=== PATIENT | male | born 1955 | race African-American/Black ===

== ENCOUNTER 2016-05-03 22:26 | Inpatient (IN) | payer MEDICARE ==
[~2016-05-03] VITALS: Ht 182.9 cm; Wt 95.1 kg
[~2016-05-03 22:26] MED LIST: ALBU2.5V NPPB; ALBU2.5V11 NEB; ALBU8.5H5 INH; ALPR-475 PO; ALPR0.254 PO; ALPR0.5T10 PO; ALPR0.5T6 PO; AMOX1TAB64 PO; ASPI-515 PO; ASPI-621 PO; ASPI-650 PO; ATOR10TA9 PO; AZIT-14 PO; BUDE10.22 INH; BUSP15TA PO; CARV3.1212 PO; CARV3.122 PO; CARV6.2512 PO; CEFD300C2 PO; CEFT600V IV; CEFU500T PO; CIPR500T87 PO; CLOP75TA PO; DIPH25CA61 PO; DOCU-30 PO; DOXY100T PO; ENAL5TAB34 PO; ENOX40SY4 SQ; FERR325T20 PO; FLUT1BLS INH; FLUT1DIS3 INH; FURO-93 PO; FURO20TA3 PO; FURO40TA6 PO; GLIP5TAB10 PO; GLYB2.5T2 PO; HYDR-3240 PO; HYDR-3307 PO; INSU100I18 SQ-INSULIN; INSU100I28 SQ-INSULIN; INSU100V5 SQ-INSULIN; INSULIN SC; IPRA3AMP NPPB; ISOS30TA8 PO; LEVO500T33 PO; LEVO750T6 PO; LISI-170 PO; LISI2.5T PO; LISI5TAB7 PO; MORP4VIA IV; NICO1PAT4 TD; NICO1PAT5 TD; ONDA4VIA4 IVP; OXYC10TA6 PO; OXYC1TAB7 PO; POLY17PO5 PO; POTA10TA5 PO; POTA20TA14 PO; PRED10TA PO; PRED10TA14 PO; PRED20TA PO; PRED5TAB PO; PREG200C PO; PREG50CA PO; SIMV10TA3 PO; TRAM50TA2 PO; TRAZ50TA18 PO; UNKNOWN INSULIN SQ; ZOLP-413 PO
[2016-05-03] MEDS ORDERED: SODIUM CHLORIDE 0.9% 1,000ML IVBOLUS ONE (23:00)
[2016-05-03] MEDS ORDERED: SODIUM CHLORIDE FLUSH 10ML SYR IVF ONE (23:00)
[2016-05-03 23:10] LABS: BLOOD UREA NITROGEN 35 mg/dL (7-18)
[2016-05-03 23:11] LABS: ASPARTATE AMINO TRANSFERASE 96 U/L (15-37)
[2016-05-03 23:21] LABS: HEMOGLOBIN 15.2 g/dL (13.7-18.0)
[2016-05-03 23:23] LABS: IS PT STATUS REG ER OR PRE ER? YES
[2016-05-04] MEDS ORDERED: BISACODYL 10 MG SUPP PR PRN (00:30)
[2016-05-04] MEDS ORDERED: ONDANSETRON 2MG/ML, 2ML IVP PRN (00:30)
[2016-05-04] MEDS ORDERED: POLYETHYLENE GLYCOL 17 GM PACKET PO PRN (00:30)
[2016-05-04] MEDS ORDERED: MORPHINE SULFATE 4 MG/ML, 1ML IVPush PRN (00:30)
[2016-05-04] MEDS ORDERED: FUROSEMIDE 40 MG/4 ML IV SCH ×2 (00:30→07:30)
[2016-05-04] MEDS ORDERED: ACETAMINOPHEN 325 MG TABLET PO PRN (00:30)
[2016-05-04] MEDS ORDERED: ALBUTEROL SULFATE 2.5 MG/3 ML ONE (01:32)
[2016-05-04] MEDS ORDERED: ALBUTEROL/IPRATROPIUM 2.5MG/0.5MG, 3 ML NPPB PRN (02:00)
[2016-05-04 03:00] VITALS: BP 104/72
[2016-05-04] MEDS: BUSPIRONE 5 MG TABLET PO SCH ×4 (04:20→20:48)
[2016-05-04] MEDS: NICOTINE 21 MG/24 HR PATCH.TD24 TD SCH (04:20)
[2016-05-04] MEDS: HEPARIN 5,000 UNITS/ML, 1ML SQ SCH ×3 (04:20→17:22)
[2016-05-04] MEDS: PREGABALIN 200 MG CAPSULE PO SCH ×4 (04:59→20:48)
[2016-05-04] MEDS ORDERED: HYDR-3152 PO (05:05)
[2016-05-04 07:25] VITALS: BP 91/58
[2016-05-04 07:26] LABS: ASPARTATE AMINO TRANSFERASE 89 U/L (15-37); BLOOD UREA NITROGEN 44 mg/dL (7-18)
[2016-05-04 07:31] LABS: IS PT STATUS REG ER OR PRE ER? NO
[2016-05-04] MEDS: ISOSORBIDE MONONITRATE ER 30 MG TABLET PO SCH (08:57)
[2016-05-04] MEDS: FUROSEMIDE 20 MG/2 ML IV SCH ×2 (08:58→17:22)
[2016-05-04] MEDS: SENNA/DOCUSATE TABLET PO SCH (08:58)
[2016-05-04] MEDS: CLOPIDOGREL 75 MG TABLET PO SCH (08:58)
[2016-05-04] MEDS: POTASSIUM CHLORIDE 20 MEQ TAB.ER.PRT PO SCH ×2 (08:58→17:22)
[2016-05-04] MEDS: FERROUS SULFATE 325 MG TABLET PO SCH (08:59)
[2016-05-04] MEDS: SODIUM CHLORIDE FLUSH 10ML SYR IVF SCH ×2 (08:59→20:49)
[2016-05-04] MEDS ORDERED: LISINOPRIL 5 MG TABLET PO SCH (09:00)
[2016-05-04] MEDS ORDERED: CARVEDILOL 3.125 MG TABLET PO SCH (09:00)
[2016-05-04] MEDS: FLUTICASONE/VILANTEROL 200-25MCG/INH INH SCH (10:01)
[2016-05-04 11:31] LABS: IS PT STATUS REG ER OR PRE ER? NO
[2016-05-04 11:50] VITALS: BP 98/67
[2016-05-04 13:38] VITALS: BP 102/71
[2016-05-04] MEDS: HYDROcodone/APAP 5/325 TABLET PO PRN ×2 (14:50→20:57)
[2016-05-04 17:27] VITALS: BP 101/68
[2016-05-04 18:48] VITALS: BP 104/76
[2016-05-05] MEDS: HEPARIN 5,000 UNITS/ML, 1ML SQ SCH ×2 (00:30→10:00)
[2016-05-05 02:44] VITALS: BP 115/83
[2016-05-05] MEDS: NICOTINE 21 MG/24 HR PATCH.TD24 TD SCH (04:16)
[2016-05-05 06:15] LABS: BLOOD UREA NITROGEN 35 mg/dL (7-18)
[2016-05-05 06:38] VITALS: BP 109/76
[2016-05-05] MEDS: SODIUM CHLORIDE FLUSH 10ML SYR IVF SCH (09:00)
[2016-05-05] MEDS: SENNA/DOCUSATE TABLET PO SCH (09:00)
[2016-05-05] MEDS: ISOSORBIDE MONONITRATE ER 30 MG TABLET PO SCH (10:08)
[2016-05-05] MEDS: PREGABALIN 200 MG CAPSULE PO SCH (10:08)
[2016-05-05] MEDS: POTASSIUM CHLORIDE 20 MEQ TAB.ER.PRT PO SCH (10:08)
[2016-05-05] MEDS: HYDROcodone/APAP 5/325 TABLET PO PRN (10:09)
[2016-05-05] MEDS: BUSPIRONE 5 MG TABLET PO SCH (10:09)
[2016-05-05] MEDS: FLUTICASONE/VILANTEROL 200-25MCG/INH INH SCH (10:09)
[2016-05-05] MEDS: CLOPIDOGREL 75 MG TABLET PO SCH (10:09)
[2016-05-05] MEDS: FUROSEMIDE 20 MG/2 ML IV SCH (10:10)
[2016-05-05] MEDS: FERROUS SULFATE 325 MG TABLET PO SCH (10:14)
[2016-05-05] MEDS ORDERED: NICO1PAT5 TD (10:51)
[2016-05-05] MEDS ORDERED: FURO-93 PO (10:51)
[2016-05-05 13:41] VITALS: BP 113/80
== END 2016-05-05 16:32 | disposition home or self-care (01) | DRG 291 ==
LOC: ED 23:52 → EDIP 23:54 → ED 23:59 → 5SO 05-04 03:16
DX: I13.0 Hypertensive heart and chronic kidney disease with heart failure and stage 1 through stage 4 chronic kidney disease, or unspecified chronic kidney disease (principal); I50.23 Acute on chronic systolic (congestive) heart failure; E44.0 Moderate protein-calorie malnutrition; J96.10 Chronic respiratory failure, unspecified whether with hypoxia or hypercapnia; I42.9 Cardiomyopathy, unspecified; E11.649 Type 2 diabetes mellitus with hypoglycemia without coma; E11.22 Type 2 diabetes mellitus with diabetic chronic kidney disease; G89.29 Other chronic pain; B18.2 Chronic viral hepatitis C; F17.200 Nicotine dependence, unspecified, uncomplicated; H54.42 Blindness, left eye, normal vision right eye; I25.10 Atherosclerotic heart disease of native coronary artery without angina pectoris; R74.8 Abnormal levels of other serum enzymes; I49.3 Ventricular premature depolarization; J44.9 Chronic obstructive pulmonary disease, unspecified; N18.2 Chronic kidney disease, stage 2 (mild); I25.2 Old myocardial infarction; Z79.4 Long term (current) use of insulin; Z82.5 Family history of asthma and other chronic lower respiratory diseases; Z83.3 Family history of diabetes mellitus; Z91.14 Patient's other noncompliance with medication regimen; Z91.19 Patient's noncompliance with other medical treatment and regimen; Z99.81 Dependence on supplemental oxygen; Z68.24 Body mass index [BMI] 24.0-24.9, adult; F15.10 Other stimulant abuse, uncomplicated; I95.9 Hypotension, unspecified
CPT/HCPCS: 36415; 71010; 80048; 80053; 80061; 82533; 82728; 82962; 83036; 83540; 83550; 83735; 83880; 84439; 84443; 84484; 85025; 85610; 93005; 93306; 94640; 96360; 96361; J1644; J7620; J1940; J7030

== ENCOUNTER 2016-05-19 23:49 | Inpatient (IN) | payer MEDICARE ==
[~2016-05-19] VITALS: Ht 182.9 cm; Wt 98.1 kg
[~2016-05-19 23:49] MED LIST changes: +HYDR-3152 PO
[2016-05-20] MEDS ORDERED: ASPIRIN 81 MG TABLET CHEW PO ONE
[2016-05-20] MEDS ORDERED: ALBUTEROL SULFATE 2.5 MG/3 ML NPPB ONE
[2016-05-20] MEDS ORDERED: ASPIRIN 81 MG TABLET CHEW ONE (00:47)
[2016-05-20 00:52] LABS: BLOOD UREA NITROGEN 17 mg/dL (7-18)
[2016-05-20 00:57] LABS: IS PT STATUS REG ER OR PRE ER? YES
[2016-05-20 01:15] LABS: HEMOGLOBIN 15.1 g/dL (13.7-18.0)
[2016-05-20] MEDS ORDERED: MORPHINE SULFATE 4 MG/ML, 1ML IVPush PRN (02:00)
[2016-05-20] MEDS ORDERED: ONDANSETRON 2MG/ML, 2ML IVPush PRN (02:00)
[2016-05-20] MEDS ORDERED: SODIUM CHLORIDE 0.9% 1,000 ML IV SCH (03:11)
[2016-05-20] MEDS ORDERED: BISACODYL 10 MG SUPP PR PRN (03:30)
[2016-05-20] MEDS ORDERED: ACETAMINOPHEN 325 MG TABLET PO PRN (03:30)
[2016-05-20] MEDS ORDERED: TRAZODONE 50MG TABLET PO PRN (03:30)
[2016-05-20] MEDS: FUROSEMIDE 40 MG TABLET PO SCH ×2 (03:30→09:07)
[2016-05-20] MEDS ORDERED: DOCUSATE 100 MG CAPSULE PO PRN (03:30)
[2016-05-20] MEDS: ENOXAPARIN 40 MG/0.4 ML SQ SCH (03:30)
[2016-05-20] MEDS ORDERED: POLYETHYLENE GLYCOL 17 GM PACKET PO PRN (03:30)
[2016-05-20] MEDS ORDERED: LABETALOL 5MG/ML, 20ML IV PRN (03:30)
[2016-05-20] MEDS ORDERED: ONDANSETRON ODT 4 MG PO PRN (03:30)
[2016-05-20 04:20] VITALS: BP 133/86
[2016-05-20] MEDS: PREGABALIN 200 MG CAPSULE PO SCH ×4 (04:48→22:02)
[2016-05-20] MEDS: HYDROcodone/APAP 10/325 MG TABLET PO PRN ×3 (04:48→22:03)
[2016-05-20] MEDS: ALBUTEROL/IPRATROPIUM 2.5MG/0.5MG, 3 ML NPPB SCH ×3 (06:00→22:00)
[2016-05-20] MEDS: NICOTINE 14MG/24 HR PATCH.TD24 TD SCH (06:49)
[2016-05-20 06:57] VITALS: BP 122/79
[2016-05-20 07:06] LABS: IS PT STATUS REG ER OR PRE ER? NO
[2016-05-20] MEDS ORDERED: FUROSEMIDE 40 MG TABLET PO SCH (09:00)
[2016-05-20] MEDS: ISOSORBIDE MONONITRATE ER 30 MG TABLET PO SCH (09:07)
[2016-05-20] MEDS: LISINOPRIL 5 MG TABLET PO SCH (09:07)
[2016-05-20] MEDS: CARVEDILOL 3.125 MG TABLET PO SCH ×2 (09:07→22:02)
[2016-05-20] MEDS: BUSPIRONE 5 MG TABLET PO SCH ×3 (09:07→22:08)
[2016-05-20] MEDS: CLOPIDOGREL 75 MG TABLET PO SCH (09:07)
[2016-05-20] MEDS: SPIRONOLACTONE 50 MG TABLET PO SCH (09:08)
[2016-05-20] MEDS: FERROUS SULFATE 325 MG TABLET PO SCH (09:08)
[2016-05-20] MEDS: INSULIN ASPART 100 UNITS/ML, PEN SQ-INSULIN SCH ×5 (10:12→22:04)
[2016-05-20] MEDS: FLUTICASONE/VILANTEROL 100-25MCG/INH INH SCH (10:12)
[2016-05-20 12:30] LABS: IS PT STATUS REG ER OR PRE ER? NO
[2016-05-20 13:51] VITALS: BP 106/70
[2016-05-20 18:29] VITALS: BP 109/74
[2016-05-21 01:47] VITALS: BP 128/78
[2016-05-21] MEDS: ENOXAPARIN 40 MG/0.4 ML SQ SCH (03:30)
[2016-05-21 05:31] LABS: HEMOGLOBIN 14.9 g/dL (13.7-18.0)
[2016-05-21 05:38] LABS: BLOOD UREA NITROGEN 30 mg/dL (7-18)
[2016-05-21] MEDS: NICOTINE 14MG/24 HR PATCH.TD24 TD SCH (06:02)
[2016-05-21 06:52] VITALS: BP 145/90
[2016-05-21] MEDS: ALBUTEROL/IPRATROPIUM 2.5MG/0.5MG, 3 ML NPPB SCH ×4 (07:00→19:10)
[2016-05-21] MEDS: INSULIN ASPART 100 UNITS/ML, PEN SQ-INSULIN SCH ×4 (07:00→21:41)
[2016-05-21 07:57] LABS: ANISOCYTOSIS 1+; HYPOCHROMIA 1+; MICROCYTOSIS 1+
[2016-05-21] MEDS: LISINOPRIL 5 MG TABLET PO SCH (08:27)
[2016-05-21] MEDS: FLUTICASONE/VILANTEROL 100-25MCG/INH INH SCH (08:27)
[2016-05-21] MEDS: CLOPIDOGREL 75 MG TABLET PO SCH (08:27)
[2016-05-21] MEDS: PREGABALIN 200 MG CAPSULE PO SCH ×3 (08:28→21:37)
[2016-05-21] MEDS: FUROSEMIDE 40 MG TABLET PO SCH (08:28)
[2016-05-21] MEDS: BUSPIRONE 5 MG TABLET PO SCH ×3 (08:28→21:38)
[2016-05-21] MEDS: CARVEDILOL 3.125 MG TABLET PO SCH ×2 (08:28→21:34)
[2016-05-21] MEDS: ISOSORBIDE MONONITRATE ER 30 MG TABLET PO SCH (08:28)
[2016-05-21] MEDS: SPIRONOLACTONE 50 MG TABLET PO SCH (08:29)
[2016-05-21] MEDS: FERROUS SULFATE 325 MG TABLET PO SCH (08:29)
[2016-05-21] MEDS: HYDROcodone/APAP 10/325 MG TABLET PO PRN ×2 (08:34→18:17)
[2016-05-21] MEDS: GUAIFENESIN 200 MG TABLET PO SCH ×3 (11:00→21:00)
[2016-05-21 12:35] VITALS: BP 107/73
[2016-05-21 18:23] VITALS: BP 121/83
[2016-05-22 01:11] VITALS: BP 139/88
[2016-05-22] MEDS: ENOXAPARIN 40 MG/0.4 ML SQ SCH (03:10)
[2016-05-22] MEDS: HYDROcodone/APAP 10/325 MG TABLET PO PRN ×2 (03:12→09:17)
[2016-05-22 05:17] LABS: HEMOGLOBIN 14.7 g/dL (13.7-18.0)
[2016-05-22 05:20] LABS: BLOOD UREA NITROGEN 34 mg/dL (7-18)
[2016-05-22] MEDS: GUAIFENESIN 200 MG TABLET PO SCH ×2 (05:30→11:00)
[2016-05-22] MEDS: NICOTINE 14MG/24 HR PATCH.TD24 TD SCH (05:30)
[2016-05-22] MEDS: INSULIN ASPART 100 UNITS/ML, PEN SQ-INSULIN SCH ×2 (07:00→12:17)
[2016-05-22 07:20] VITALS: BP 141/93
[2016-05-22] MEDS: ALBUTEROL/IPRATROPIUM 2.5MG/0.5MG, 3 ML NPPB SCH ×3 (07:55→14:50)
[2016-05-22] MEDS ORDERED: SPIR50TA PO (08:16)
[2016-05-22] MEDS ORDERED: AZIT500T4 PO (08:16)
[2016-05-22] MEDS ORDERED: PRED10TA PO (08:16)
[2016-05-22] MEDS ORDERED: FURO40TA6 PO (08:16)
[2016-05-22] MEDS ORDERED: GUAI200T3 PO (08:18)
[2016-05-22] MEDS: FLUTICASONE/VILANTEROL 100-25MCG/INH INH SCH (09:00)
[2016-05-22] MEDS: FERROUS SULFATE 325 MG TABLET PO SCH (09:00)
[2016-05-22] MEDS: SPIRONOLACTONE 50 MG TABLET PO SCH (09:00)
[2016-05-22] MEDS: BUSPIRONE 5 MG TABLET PO SCH (09:01)
[2016-05-22] MEDS: CARVEDILOL 3.125 MG TABLET PO SCH (09:01)
[2016-05-22] MEDS: CLOPIDOGREL 75 MG TABLET PO SCH (09:02)
[2016-05-22] MEDS: ISOSORBIDE MONONITRATE ER 30 MG TABLET PO SCH (09:02)
[2016-05-22] MEDS: LISINOPRIL 5 MG TABLET PO SCH (09:02)
[2016-05-22] MEDS: FUROSEMIDE 40 MG TABLET PO SCH (09:02)
[2016-05-22] MEDS: PREGABALIN 200 MG CAPSULE PO SCH (09:02)
[2016-05-22 13:58] VITALS: BP 119/73
== END 2016-05-22 16:10 | disposition home or self-care (01) | DRG 191 ==
LOC: ED 05-20 00:47 → INTOOBSV 05-20 01:34 → EDIP 05-20 01:34 → 4WST 05-20 04:14 → OBSVTOIN 05-21 10:17
PROVIDERS: ADMIT Internal Medicine; ATTEND Internal Medicine
DX: J44.1 Chronic obstructive pulmonary disease with (acute) exacerbation (principal); E87.1 Hypo-osmolality and hyponatremia; I13.0 Hypertensive heart and chronic kidney disease with heart failure and stage 1 through stage 4 chronic kidney disease, or unspecified chronic kidney disease; I42.9 Cardiomyopathy, unspecified; I50.42 Chronic combined systolic (congestive) and diastolic (congestive) heart failure; B19.20 Unspecified viral hepatitis C without hepatic coma; E11.22 Type 2 diabetes mellitus with diabetic chronic kidney disease; G89.29 Other chronic pain; F12.10 Cannabis abuse, uncomplicated; F17.200 Nicotine dependence, unspecified, uncomplicated; M94.0 Chondrocostal junction syndrome [Tietze]; N18.2 Chronic kidney disease, stage 2 (mild); Z79.4 Long term (current) use of insulin; Z83.3 Family history of diabetes mellitus; Z99.81 Dependence on supplemental oxygen; Z82.49 Family history of ischemic heart disease and other diseases of the circulatory system; F15.10 Other stimulant abuse, uncomplicated
CPT/HCPCS: 36415; 71010; 80048; 82040; 82962; 83880; 84484; 85025; 93005; 94640; 99285; G0378; J1815; J7613; J7620; J7030; J7512

== ENCOUNTER 2016-07-17 08:10 | Inpatient (IN) | payer MEDICARE ==
[~2016-07-17] VITALS: Ht 182.9 cm; Wt 105.9 kg
[~2016-07-17 08:10] MED LIST changes: -AZIT-14 PO; +AZIT250T89 PO; +AZIT500T77 PO; -CEFD300C2 PO; +CEFD300C37 PO; +GUAI200T3 PO; +SPIR50TA PO
[2016-07-17] MEDS ORDERED: MORPHINE SULFATE 4 MG/ML, 1ML ONE (09:12)
[2016-07-17] MEDS ORDERED: MORPHINE SULFATE 4 MG/ML, 1ML IVPush PRN (09:30)
[2016-07-17] MEDS ORDERED: SODIUM CHLORIDE FLUSH 10ML SYR IVF ONE (09:30)
[2016-07-17 09:42] LABS: BLOOD UREA NITROGEN 18 mg/dL (7-18)
[2016-07-17 09:47] LABS: ASPARTATE AMINO TRANSFERASE 37 U/L (15-37)
[2016-07-17 09:48] LABS: IS PT STATUS REG ER OR PRE ER? YES
[2016-07-17] MEDS ORDERED: SODIUM CHLORIDE FLUSH 10ML SYR IVF PRN (11:00)
[2016-07-17] MEDS ORDERED: LABETALOL 5MG/ML, 20ML IVPush PRN (11:30)
[2016-07-17] MEDS ORDERED: ONDANSETRON ODT 4 MG PO PRN (11:30)
[2016-07-17] MEDS ORDERED: morphine SULFATE 10 MG/ML, 1ML IVPush PRN (11:30)
[2016-07-17] MEDS ORDERED: ONDANSETRON 2MG/ML, 2ML IVPush PRN (11:30)
[2016-07-17 11:58] VITALS: BP 124/86
[2016-07-17 12:09] LABS: IS PT STATUS REG ER OR PRE ER? YES
[2016-07-17] MEDS: ENOXAPARIN 40 MG/0.4 ML SQ SCH (12:30)
[2016-07-17 12:58] LABS: DAU SCREEN DISCLAIMER
[2016-07-17] MEDS: methylPREDNISolone SOD SUCC 125 MG/2 ML IVPush SCH ×2 (13:18→21:39)
[2016-07-17] MEDS: HYDROcodone/APAP 5/325 TABLET PO PRN ×3 (13:18→21:50)
[2016-07-17] MEDS: LISINOPRIL 5 MG TABLET PO SCH (13:18)
[2016-07-17] MEDS ORDERED: ISOSORBIDE MONONITRATE ER 30 MG TABLET PO ONE (13:30)
[2016-07-17] MEDS ORDERED: INSU100V13 SC (13:56)
[2016-07-17] MEDS ORDERED: INSU100C5 SQ-INSULIN (13:57)
[2016-07-17] MEDS: ALBUTEROL/IPRATROPIUM 2.5MG/0.5MG, 3 ML NPPB SCH ×2 (14:03→19:20)
[2016-07-17] MEDS ORDERED: FERR160T4 PO (14:26)
[2016-07-17] MEDS ORDERED: DEXTROSE 4 GM TAB.CHEW PO PRN (14:30)
[2016-07-17] MEDS ORDERED: DEXTROSE 50%, 50ML SYRINGE IVPush PRN (14:30)
[2016-07-17] MEDS ORDERED: GLUCAGON 1 MG IM PRN (14:30)
[2016-07-17 15:03] VITALS: BP 146/92
[2016-07-17] MEDS ORDERED: FUROSEMIDE 40 MG/4 ML IV SCH (17:00)
[2016-07-17 17:23] LABS: IS PT STATUS REG ER OR PRE ER? NO
[2016-07-17] MEDS ORDERED: DIPHENHYDRAMINE 50 MG CAPSULE PO PRN (17:30)
[2016-07-17] MEDS ORDERED: DIPHENHYDRAMINE 25 MG CAPSULE ONE (17:32)
[2016-07-17] MEDS: BUSPIRONE 5 MG TABLET PO SCH ×2 (17:33→21:39)
[2016-07-17] MEDS: PREGABALIN 200 MG CAPSULE PO SCH ×2 (17:33→21:39)
[2016-07-17] MEDS: INSULIN ASPART 100 UNITS/ML, PEN SQ-INSULIN SCH ×2 (17:34→21:39)
[2016-07-17 18:56] VITALS: BP 105/62
[2016-07-17] MEDS ORDERED: CYANOCOBALAMIN 1,000 MCG/ML, 1ML IM ONE (20:00)
[2016-07-17] MEDS ORDERED: INSULIN DETEMIR 100 UNITS/ML, PEN SQ-INSULIN SCH (21:00)
[2016-07-17] MEDS: SODIUM CHLORIDE FLUSH 10ML SYR IVF SCH (21:40)
[2016-07-18 00:56] VITALS: BP 106/63
[2016-07-18] MEDS: ALBUTEROL/IPRATROPIUM 2.5MG/0.5MG, 3 ML NPPB SCH ×4 (01:29→15:25)
[2016-07-18] MEDS: HYDROcodone/APAP 5/325 TABLET PO PRN ×3 (02:03→10:27)
[2016-07-18] MEDS: methylPREDNISolone SOD SUCC 125 MG/2 ML IVPush SCH ×2 (03:42→08:58)
[2016-07-18 05:44] LABS: ASPARTATE AMINO TRANSFERASE 34 U/L (15-37); BLOOD UREA NITROGEN 34 mg/dL (7-18)
[2016-07-18 06:52] VITALS: BP 131/88
[2016-07-18] MEDS: INSULIN ASPART 100 UNITS/ML, PEN SQ-INSULIN SCH ×3 (08:56→17:32)
[2016-07-18] MEDS: SODIUM CHLORIDE FLUSH 10ML SYR IVF SCH (08:59)
[2016-07-18] MEDS ORDERED: FLUTICASONE/VILANTEROL 200-25MCG/INH INH SCH (09:00)
[2016-07-18] MEDS ORDERED: SENNA/DOCUSATE TABLET PO SCH (09:00)
[2016-07-18] MEDS ORDERED: ISOSORBIDE MONONITRATE ER 30 MG TABLET PO SCH (09:00)
[2016-07-18] MEDS ORDERED: CLOPIDOGREL 75 MG TABLET PO SCH (09:00)
[2016-07-18] MEDS ORDERED: FUROSEMIDE 40 MG/4 ML IV SCH (09:00)
[2016-07-18] MEDS: PREGABALIN 200 MG CAPSULE PO SCH ×2 (09:01→16:28)
[2016-07-18] MEDS: BUSPIRONE 5 MG TABLET PO SCH ×2 (09:01→16:28)
[2016-07-18] MEDS: LISINOPRIL 5 MG TABLET PO SCH (09:01)
[2016-07-18] MEDS: ENOXAPARIN 40 MG/0.4 ML SQ SCH ×2 (12:30→12:53)
[2016-07-18 13:32] VITALS: BP 116/81
[2016-07-18] MEDS ORDERED: AMIT100T PO (15:15)
[2016-07-18] MEDS ORDERED: AMIT50TA PO (15:43)
[2016-07-18] MEDS ORDERED: FURO40TA6 PO (15:43)
[2016-07-18] MEDS ORDERED: PRED20TA PO (15:43)
== END 2016-07-18 18:05 | disposition home health service (06) | DRG 189 ==
LOC: ED 09:33 → EDIP 10:50 → 5SO 11:51
PROVIDERS: ADMIT Hospitalist; ATTEND Hospitalist
DX: J96.00 Acute respiratory failure, unspecified whether with hypoxia or hypercapnia (principal); E44.1 Mild protein-calorie malnutrition; I13.0 Hypertensive heart and chronic kidney disease with heart failure and stage 1 through stage 4 chronic kidney disease, or unspecified chronic kidney disease; J44.1 Chronic obstructive pulmonary disease with (acute) exacerbation; I42.9 Cardiomyopathy, unspecified; B18.2 Chronic viral hepatitis C; E11.22 Type 2 diabetes mellitus with diabetic chronic kidney disease; E11.65 Type 2 diabetes mellitus with hyperglycemia; E78.5 Hyperlipidemia, unspecified; G89.29 Other chronic pain; I25.10 Atherosclerotic heart disease of native coronary artery without angina pectoris; I50.9 Heart failure, unspecified; I27.2 Other secondary pulmonary hypertension; K59.00 Constipation, unspecified; N18.2 Chronic kidney disease, stage 2 (mild); Z79.4 Long term (current) use of insulin; Z80.1 Family history of malignant neoplasm of trachea, bronchus and lung; I25.2 Old myocardial infarction; Z82.49 Family history of ischemic heart disease and other diseases of the circulatory system; Z83.3 Family history of diabetes mellitus; Z87.891 Personal history of nicotine dependence; Z91.14 Patient's other noncompliance with medication regimen; Z91.19 Patient's noncompliance with other medical treatment and regimen; Z99.81 Dependence on supplemental oxygen
CPT/HCPCS: 36415; 71010; 80053; 80061; 80307; 81001; 82607; 82728; 82746; 82962; 83036; 83540; 83550; 83690; 83735; 83880; 84100; 84439; 84443; 84484; 85025; 85379; 85610; 85730; 87086; 93005; 93306; 94640; 96374; J1650; J1815; J1940; J7620; J2930; J3420; J7512

== ENCOUNTER 2016-07-24 18:50 | Inpatient (IN) | payer MEDICARE ==
[~2016-07-24] VITALS: Ht 182.9 cm; Wt 102.4 kg
[~2016-07-24 18:50] MED LIST changes: +AMIT100T PO; +AMIT50TA PO; +FERR160T4 PO; +INSU100C5 SQ-INSULIN; +INSU100V13 SC
[2016-07-24 19:28] LABS: PH, VENOUS 7.386 pH (7.320-7.420)
[2016-07-24] MEDS ORDERED: SODIUM CHLORIDE 0.9% 1,000ML IVBOLUS ONE (19:30)
[2016-07-24 19:41] LABS: ASPARTATE AMINO TRANSFERASE 34 U/L (15-37); BLOOD UREA NITROGEN 30 mg/dL (7-18)
[2016-07-24] MEDS ORDERED: INSULIN REGULAR 100 UNITS/ML, 3ML VIAL IVPush ONE (20:00)
[2016-07-24] MEDS ORDERED: ALBUTEROL SULFATE 2.5 MG/3 ML NPPB ONE (20:00)
[2016-07-24] MEDS ORDERED: ASPIRIN 325 MG TABLET PO ONE (20:00)
[2016-07-24] MEDS ORDERED: INSULIN REGULAR 100 UNITS/ML, 3ML VIAL SQ-INSULIN ONE (20:00)
[2016-07-24] MEDS ORDERED: ALBUTEROL SULFATE 2.5 MG/3 ML ONE (20:09)
[2016-07-24 20:22] LABS: IS PT STATUS REG ER OR PRE ER? YES
[2016-07-24] MEDS ORDERED: HYDROcodone/APAP 10/325 MG TABLET PO PRN (20:30)
[2016-07-24] MEDS ORDERED: BISACODYL 10 MG SUPP PR PRN (21:00)
[2016-07-24] MEDS: HEPARIN 5,000 UNITS/ML, 1ML SQ SCH ×2 (21:00→23:22)
[2016-07-24] MEDS ORDERED: POLYETHYLENE GLYCOL 17 GM PACKET PO PRN (21:00)
[2016-07-24] MEDS ORDERED: ONDANSETRON 2MG/ML, 2ML IVPush PRN (21:00)
[2016-07-24] MEDS: SODIUM CHLORIDE FLUSH 3ML SYRINGE IVF SCH (21:00)
[2016-07-24] MEDS ORDERED: ACETAMINOPHEN 325 MG TABLET PO PRN (21:00)
[2016-07-24 21:50] VITALS: BP 133/86
[2016-07-24] MEDS: CARVEDILOL 3.125 MG TABLET PO SCH (23:20)
[2016-07-24] MEDS: BUSPIRONE 5 MG TABLET PO SCH (23:20)
[2016-07-24] MEDS: AMITRIPTYLINE 50 MG TABLET PO SCH (23:20)
[2016-07-24] MEDS: PREGABALIN 200 MG CAPSULE PO SCH (23:20)
[2016-07-24] MEDS: INSULIN DETEMIR 100 UNITS/ML, PEN SQ-INSULIN SCH (23:21)
[2016-07-24] MEDS: INSULIN ASPART 100 UNITS/ML, PEN SQ-INSULIN SCH (23:22)
[2016-07-24] MEDS: NICOTINE 21 MG/24 HR PATCH.TD24 TD SCH (23:22)
[2016-07-25 06:47] LABS: ASPARTATE AMINO TRANSFERASE 26 U/L (15-37); BLOOD UREA NITROGEN 30 mg/dL (7-18)
[2016-07-25] MEDS ORDERED: ALBUTEROL SULFATE 2.5 MG/3 ML NPPB SCH (07:00)
[2016-07-25] MEDS: CLOPIDOGREL 75 MG TABLET PO SCH (07:45)
[2016-07-25] MEDS: FUROSEMIDE 40 MG TABLET PO SCH (07:45)
[2016-07-25] MEDS: SODIUM CHLORIDE FLUSH 3ML SYRINGE IVF SCH ×2 (07:45→21:00)
[2016-07-25] MEDS: SENNA/DOCUSATE TABLET PO SCH (07:45)
[2016-07-25] MEDS: BUSPIRONE 5 MG TABLET PO SCH ×3 (07:45→22:45)
[2016-07-25] MEDS: LISINOPRIL 5 MG TABLET PO SCH (07:45)
[2016-07-25] MEDS: CARVEDILOL 3.125 MG TABLET PO SCH ×2 (07:45→21:30)
[2016-07-25] MEDS: FERROUS SULFATE 325 MG TABLET PO SCH (07:45)
[2016-07-25] MEDS: PREGABALIN 200 MG CAPSULE PO SCH ×2 (07:45→22:45)
[2016-07-25] MEDS: ISOSORBIDE MONONITRATE ER 30 MG TABLET PO SCH (07:45)
[2016-07-25] MEDS ORDERED: INSULIN ASPART 100 UNITS/ML, PEN SQ-INSULIN ONE ×2 (08:40→12:00)
[2016-07-25] MEDS: FLUTICASONE/VILANTEROL 200-25MCG/INH INH SCH (09:00)
[2016-07-25] MEDS ORDERED: FERROUS GLUCONATE 324 MG TABLET PO SCH (09:00)
[2016-07-25] MEDS: INSULIN ASPART 100 UNITS/ML, PEN SQ-INSULIN SCH ×3 (11:00→21:00)
[2016-07-25] MEDS ORDERED: INSULIN DETEMIR 100 UNITS/ML, PEN SQ-INSULIN ONE (12:00)
[2016-07-25] MEDS: AMITRIPTYLINE 50 MG TABLET PO SCH (21:30)
[2016-07-25] MEDS: INSULIN DETEMIR 100 UNITS/ML, PEN SQ-INSULIN SCH (21:30)
[2016-07-25] MEDS: NICOTINE 21 MG/24 HR PATCH.TD24 TD SCH (22:00)
[2016-07-26] MEDS: INSULIN ASPART 100 UNITS/ML, PEN SQ-INSULIN SCH ×4 (07:00→17:05)
[2016-07-26] MEDS: SENNA/DOCUSATE TABLET PO SCH (08:45)
[2016-07-26] MEDS: FERROUS SULFATE 325 MG TABLET PO SCH (08:45)
[2016-07-26] MEDS: ISOSORBIDE MONONITRATE ER 30 MG TABLET PO SCH (08:45)
[2016-07-26] MEDS: FUROSEMIDE 40 MG TABLET PO SCH (08:45)
[2016-07-26] MEDS: CARVEDILOL 3.125 MG TABLET PO SCH (08:45)
[2016-07-26] MEDS: CLOPIDOGREL 75 MG TABLET PO SCH (08:45)
[2016-07-26] MEDS: LISINOPRIL 5 MG TABLET PO SCH (08:45)
[2016-07-26] MEDS: SODIUM CHLORIDE FLUSH 3ML SYRINGE IVF SCH (08:45)
[2016-07-26] MEDS: BUSPIRONE 5 MG TABLET PO SCH ×2 (08:45→17:05)
[2016-07-26] MEDS: HYDROcodone/APAP 10/325 MG TABLET PO PRN ×2 (08:50→17:04)
[2016-07-26] MEDS ORDERED: DOXYCYCLINE 100MG TABLET PO SCH (09:00)
[2016-07-26] MEDS: FLUTICASONE/VILANTEROL 200-25MCG/INH INH SCH (09:00)
[2016-07-26] MEDS: PREGABALIN 200 MG CAPSULE PO SCH ×2 (09:00→17:05)
[2016-07-26 12:45] VITALS: BP 117/83
[2016-07-26] MEDS: HEPARIN 5,000 UNITS/ML, 1ML SQ SCH (13:00)
[2016-07-26] MEDS ORDERED: INSU100I28 SC (15:39)
[2016-07-26] MEDS ORDERED: PRED20TA PO (15:41)
[2016-07-26] MEDS ORDERED: DOXY100T PO (15:41)
[2016-08-01] MEDS ORDERED: CEFD300C37 PO (10:17)
[2016-08-01] MEDS ORDERED: DOXY100T PO (10:17)
[2016-08-01] MEDS ORDERED: FURO-93 PO (10:17)
== END 2016-07-26 22:00 | disposition home or self-care (01) | DRG 637 ==
LOC: ED 19:47 → EDIP 19:58 → 3NE 21:50
PROVIDERS: ADMIT Internal Medicine; ATTEND Internal Medicine
DX: E11.65 Type 2 diabetes mellitus with hyperglycemia (principal); N17.0 Acute kidney failure with tubular necrosis; E44.1 Mild protein-calorie malnutrition; E87.1 Hypo-osmolality and hyponatremia; I42.9 Cardiomyopathy, unspecified; J96.10 Chronic respiratory failure, unspecified whether with hypoxia or hypercapnia; I13.0 Hypertensive heart and chronic kidney disease with heart failure and stage 1 through stage 4 chronic kidney disease, or unspecified chronic kidney disease; N17.9 Acute kidney failure, unspecified; N18.2 Chronic kidney disease, stage 2 (mild); E11.22 Type 2 diabetes mellitus with diabetic chronic kidney disease; B18.2 Chronic viral hepatitis C; I25.10 Atherosclerotic heart disease of native coronary artery without angina pectoris; I25.2 Old myocardial infarction; E86.0 Dehydration; I27.2 Other secondary pulmonary hypertension; G89.29 Other chronic pain; D72.829 Elevated white blood cell count, unspecified; I50.9 Heart failure, unspecified; J44.9 Chronic obstructive pulmonary disease, unspecified; E78.5 Hyperlipidemia, unspecified; F12.90 Cannabis use, unspecified, uncomplicated; Z87.01 Personal history of pneumonia (recurrent); Z79.4 Long term (current) use of insulin; Z87.891 Personal history of nicotine dependence; Z79.82 Long term (current) use of aspirin; Z89.421 Acquired absence of other right toe(s); Z98.49 Cataract extraction status, unspecified eye; Z82.49 Family history of ischemic heart disease and other diseases of the circulatory system; Z83.3 Family history of diabetes mellitus; Z80.1 Family history of malignant neoplasm of trachea, bronchus and lung; Z79.02 Long term (current) use of antithrombotics/antiplatelets; Z79.899 Other long term (current) drug therapy; Z68.30 Body mass index [BMI] 30.0-30.9, adult
CPT/HCPCS: 36415; 71010; 80053; 82010; 82803; 82962; 83880; 84484; 85025; 93005; 94640; 96372; 96374; J1644; J1815; J7613; J7030; J7512

== ENCOUNTER 2016-09-13 09:30 | Inpatient (IN) | payer MEDICARE ==
[~2016-09-13] VITALS: Ht 182.9 cm; Wt 108.3 kg
[~2016-09-13 09:30] MED LIST changes: +INSU100I28 SC
[2016-09-13] MEDS ORDERED: ALBUTEROL/IPRATROPIUM 2.5MG/0.5MG, 3 ML ONE ×3 (09:39→18:20)
[2016-09-13] MEDS ORDERED: ASPIRIN 81 MG TABLET CHEW ONE (10:44)
[2016-09-13] MEDS ORDERED: ASPIRIN 81 MG TABLET CHEW PO ONE (11:00)
[2016-09-13] MEDS ORDERED: SODIUM CHLORIDE FLUSH 10ML SYR IVF ONE (11:00)
[2016-09-13 11:02] LABS: ASPARTATE AMINO TRANSFERASE 113 U/L (15-37); BLOOD UREA NITROGEN 25 mg/dL (7-18)
[2016-09-13 11:08] LABS: IS PT STATUS REG ER OR PRE ER? YES
[2016-09-13] MEDS ORDERED: ALBUTEROL/IPRATROPIUM 2.5MG/0.5MG, 3 ML NPPB ONE (13:00)
[2016-09-13 13:02] LABS: ABG COLLECTION SITE RIGHT RADIAL; COLLATERAL CIRCULATION TESTING NORMAL
[2016-09-13] MEDS ORDERED: morphine SULFATE 10 MG/ML, 1ML IVPush PRN (17:00)
[2016-09-13] MEDS ORDERED: DOCUSATE 100 MG CAPSULE PO PRN (17:00)
[2016-09-13] MEDS ORDERED: ONDANSETRON 2MG/ML, 2ML IVPush PRN (17:00)
[2016-09-13] MEDS ORDERED: hydrALAzine 20 MG/ML, 1ML IVPush PRN (17:00)
[2016-09-13] MEDS ORDERED: ACETAMINOPHEN 325 MG TABLET PO PRN (17:00)
[2016-09-13] MEDS: FUROSEMIDE 40 MG/4 ML IV SCH (17:37)
[2016-09-13 18:10] LABS: IS PT STATUS REG ER OR PRE ER? NO
[2016-09-13 18:44] VITALS: BP 106/76
[2016-09-13] MEDS: ALBUTEROL/IPRATROPIUM 2.5MG/0.5MG, 3 ML NPPB SCH (19:08)
[2016-09-13] MEDS: CARVEDILOL 3.125 MG TABLET PO SCH (21:42)
[2016-09-13] MEDS: BUSPIRONE 5 MG TABLET PO SCH (21:42)
[2016-09-13] MEDS: AMITRIPTYLINE 50 MG TABLET PO SCH (21:42)
[2016-09-13] MEDS: INSULIN ASPART 100 UNITS/ML, PEN SQ-INSULIN SCH ×2 (21:42→21:45)
[2016-09-13] MEDS: INSULIN DETEMIR 100 UNITS/ML, PEN SQ-INSULIN SCH (21:42)
[2016-09-13] MEDS: PREGABALIN 200 MG CAPSULE PO SCH (21:42)
[2016-09-13] MEDS: ENOXAPARIN 40 MG/0.4 ML SQ SCH (21:43)
[2016-09-13] MEDS: HYDROcodone/APAP 10/325 MG TABLET PO PRN (21:47)
[2016-09-14 00:07] LABS: IS PT STATUS REG ER OR PRE ER? NO
[2016-09-14 01:26] VITALS: BP 115/84
[2016-09-14] MEDS: HYDROcodone/APAP 10/325 MG TABLET PO PRN ×4 (02:03→22:59)
[2016-09-14] MEDS: ASPIRIN 81 MG TABLET EC PO SCH (05:40)
[2016-09-14] MEDS: ALBUTEROL/IPRATROPIUM 2.5MG/0.5MG, 3 ML NPPB SCH ×4 (05:50→18:35)
[2016-09-14 06:10] LABS: ASPARTATE AMINO TRANSFERASE 119 U/L (15-37); BLOOD UREA NITROGEN 22 mg/dL (7-18)
[2016-09-14 06:17] LABS: IS PT STATUS REG ER OR PRE ER? NO
[2016-09-14] MEDS: INSULIN ASPART 100 UNITS/ML, PEN SQ-INSULIN SCH ×4 (07:00→19:59)
[2016-09-14] MEDS: INSULIN DETEMIR 100 UNITS/ML, PEN SQ-INSULIN SCH ×2 (08:35→20:04)
[2016-09-14] MEDS: PREGABALIN 200 MG CAPSULE PO SCH ×3 (08:35→20:00)
[2016-09-14] MEDS: CLOPIDOGREL 75 MG TABLET PO SCH (08:36)
[2016-09-14] MEDS: FUROSEMIDE 40 MG/4 ML IV SCH ×2 (08:36→16:21)
[2016-09-14] MEDS: LISINOPRIL 5 MG TABLET PO SCH (08:36)
[2016-09-14] MEDS: ISOSORBIDE MONONITRATE ER 30 MG TABLET PO SCH (08:36)
[2016-09-14] MEDS: BUSPIRONE 5 MG TABLET PO SCH ×3 (08:36→20:00)
[2016-09-14] MEDS: CARVEDILOL 3.125 MG TABLET PO SCH ×2 (08:36→20:01)
[2016-09-14] MEDS: FLUTICASONE/VILANTEROL 200-25MCG/INH INH SCH (08:45)
[2016-09-14 08:56] VITALS: BP 133/96
[2016-09-14] MEDS: ENOXAPARIN 40 MG/0.4 ML SQ SCH (16:22)
[2016-09-14 16:56] VITALS: BP 122/78
[2016-09-14 19:35] VITALS: BP 105/80
[2016-09-14] MEDS: AMITRIPTYLINE 50 MG TABLET PO SCH (20:00)
[2016-09-15 01:32] VITALS: BP 139/94
[2016-09-15] MEDS: ASPIRIN 81 MG TABLET EC PO SCH (05:27)
[2016-09-15 06:02] LABS: BLOOD UREA NITROGEN 27 mg/dL (7-18)
[2016-09-15 06:07] LABS: ASPARTATE AMINO TRANSFERASE 141 U/L (15-37)
[2016-09-15] MEDS: ALBUTEROL/IPRATROPIUM 2.5MG/0.5MG, 3 ML NPPB SCH ×4 (06:30→20:20)
[2016-09-15] MEDS: HYDROcodone/APAP 10/325 MG TABLET PO PRN ×2 (07:15→17:12)
[2016-09-15 07:42] VITALS: BP 142/90
[2016-09-15] MEDS: INSULIN ASPART 100 UNITS/ML, PEN SQ-INSULIN SCH ×4 (09:07→20:11)
[2016-09-15] MEDS: ISOSORBIDE MONONITRATE ER 30 MG TABLET PO SCH (09:08)
[2016-09-15] MEDS: LISINOPRIL 5 MG TABLET PO SCH (09:08)
[2016-09-15] MEDS: FLUTICASONE/VILANTEROL 200-25MCG/INH INH SCH (09:08)
[2016-09-15] MEDS: CLOPIDOGREL 75 MG TABLET PO SCH (09:08)
[2016-09-15] MEDS: INSULIN DETEMIR 100 UNITS/ML, PEN SQ-INSULIN SCH ×2 (09:08→20:13)
[2016-09-15] MEDS: PREGABALIN 200 MG CAPSULE PO SCH ×3 (09:08→20:11)
[2016-09-15] MEDS: BUSPIRONE 5 MG TABLET PO SCH ×3 (09:09→20:11)
[2016-09-15] MEDS: CARVEDILOL 3.125 MG TABLET PO SCH ×2 (09:09→20:11)
[2016-09-15] MEDS: FUROSEMIDE 40 MG/4 ML IV SCH ×2 (09:09→17:18)
[2016-09-15 13:10] VITALS: BP 123/83
[2016-09-15] MEDS: ENOXAPARIN 40 MG/0.4 ML SQ SCH (18:15)
[2016-09-15 19:47] VITALS: BP 111/84
[2016-09-15] MEDS: AMITRIPTYLINE 50 MG TABLET PO SCH (20:11)
[2016-09-16 01:17] VITALS: BP 121/90
[2016-09-16 05:39] LABS: ASPARTATE AMINO TRANSFERASE 176 U/L (15-37); BLOOD UREA NITROGEN 33 mg/dL (7-18)
[2016-09-16 07:09] VITALS: BP 132/91
[2016-09-16] MEDS: ALBUTEROL/IPRATROPIUM 2.5MG/0.5MG, 3 ML NPPB SCH ×4 (07:10→19:02)
[2016-09-16] MEDS: INSULIN ASPART 100 UNITS/ML, PEN SQ-INSULIN SCH ×4 (08:41→20:56)
[2016-09-16] MEDS: FUROSEMIDE 40 MG/4 ML IV SCH ×2 (08:50→17:50)
[2016-09-16] MEDS: ISOSORBIDE MONONITRATE ER 30 MG TABLET PO SCH (08:50)
[2016-09-16] MEDS: CLOPIDOGREL 75 MG TABLET PO SCH (08:50)
[2016-09-16] MEDS: FLUTICASONE/VILANTEROL 200-25MCG/INH INH SCH (08:51)
[2016-09-16] MEDS: LISINOPRIL 5 MG TABLET PO SCH (08:51)
[2016-09-16] MEDS: BUSPIRONE 5 MG TABLET PO SCH ×3 (08:51→19:55)
[2016-09-16] MEDS: ASPIRIN 81 MG TABLET EC PO SCH (08:51)
[2016-09-16] MEDS: PREGABALIN 200 MG CAPSULE PO SCH ×3 (08:51→19:50)
[2016-09-16] MEDS: CARVEDILOL 3.125 MG TABLET PO SCH ×2 (08:51→19:55)
[2016-09-16] MEDS: INSULIN DETEMIR 100 UNITS/ML, PEN SQ-INSULIN SCH ×2 (08:52→20:57)
[2016-09-16 13:58] VITALS: BP 111/89
[2016-09-16] MEDS: ENOXAPARIN 40 MG/0.4 ML SQ SCH (17:56)
[2016-09-16 19:55] VITALS: BP 113/77
[2016-09-16] MEDS: AMITRIPTYLINE 50 MG TABLET PO SCH (19:55)
[2016-09-16] MEDS: HYDROcodone/APAP 10/325 MG TABLET PO PRN (23:41)
[2016-09-17 01:28] VITALS: BP 118/88
[2016-09-17 05:37] LABS: BLOOD UREA NITROGEN 46 mg/dL (7-18)
[2016-09-17 05:41] LABS: ASPARTATE AMINO TRANSFERASE 173 U/L (15-37)
[2016-09-17] MEDS ORDERED: SODIUM POLYSTYRENE SULFONATE ORAL SUSP PO ONE (06:00)
[2016-09-17] MEDS: ASPIRIN 81 MG TABLET EC PO SCH (06:37)
[2016-09-17 06:42] VITALS: BP 126/92
[2016-09-17] MEDS: ALBUTEROL/IPRATROPIUM 2.5MG/0.5MG, 3 ML NPPB SCH ×4 (07:10→19:13)
[2016-09-17] MEDS: INSULIN DETEMIR 100 UNITS/ML, PEN SQ-INSULIN SCH ×2 (08:39→21:28)
[2016-09-17] MEDS: CLOPIDOGREL 75 MG TABLET PO SCH (08:39)
[2016-09-17] MEDS: BUSPIRONE 5 MG TABLET PO SCH ×3 (08:39→21:07)
[2016-09-17] MEDS: ISOSORBIDE MONONITRATE ER 30 MG TABLET PO SCH (08:39)
[2016-09-17] MEDS: PREGABALIN 200 MG CAPSULE PO SCH ×3 (08:39→21:00)
[2016-09-17] MEDS: FLUTICASONE/VILANTEROL 200-25MCG/INH INH SCH (08:39)
[2016-09-17] MEDS: LISINOPRIL 5 MG TABLET PO SCH (08:39)
[2016-09-17] MEDS: INSULIN ASPART 100 UNITS/ML, PEN SQ-INSULIN SCH ×4 (08:40→21:00)
[2016-09-17] MEDS: CARVEDILOL 3.125 MG TABLET PO SCH ×2 (08:40→21:00)
[2016-09-17] MEDS: FUROSEMIDE 40 MG/4 ML IV SCH (08:40)
[2016-09-17 12:44] VITALS: BP 121/89
[2016-09-17 14:43] LABS: BLOOD UREA NITROGEN 43 mg/dL (7-18)
[2016-09-17] MEDS: ENOXAPARIN 40 MG/0.4 ML SQ SCH (17:09)
[2016-09-17 21:05] VITALS: BP 97/69
[2016-09-17] MEDS: AMITRIPTYLINE 50 MG TABLET PO SCH (21:07)
[2016-09-17] MEDS: HYDROcodone/APAP 10/325 MG TABLET PO PRN (21:33)
[2016-09-18 02:41] VITALS: BP 119/87
[2016-09-18] MEDS: ASPIRIN 81 MG TABLET EC PO SCH (06:26)
[2016-09-18 06:30] LABS: BLOOD UREA NITROGEN 44 mg/dL (7-18)
[2016-09-18] MEDS: INSULIN ASPART 100 UNITS/ML, PEN SQ-INSULIN SCH ×4 (07:00→20:02)
[2016-09-18] MEDS: ALBUTEROL/IPRATROPIUM 2.5MG/0.5MG, 3 ML NPPB SCH ×4 (07:00→20:35)
[2016-09-18 07:15] LABS: ABG COLLECTION SITE LEFT RADIAL; COLLATERAL CIRCULATION TESTING NORMAL
[2016-09-18 08:45] VITALS: BP 129/80
[2016-09-18] MEDS: ISOSORBIDE MONONITRATE ER 30 MG TABLET PO SCH (08:51)
[2016-09-18] MEDS: LISINOPRIL 5 MG TABLET PO SCH (08:51)
[2016-09-18] MEDS: PREGABALIN 200 MG CAPSULE PO SCH ×3 (08:51→23:26)
[2016-09-18] MEDS: BUSPIRONE 5 MG TABLET PO SCH ×3 (08:51→19:55)
[2016-09-18] MEDS: CLOPIDOGREL 75 MG TABLET PO SCH (08:51)
[2016-09-18] MEDS: FLUTICASONE/VILANTEROL 200-25MCG/INH INH SCH (08:51)
[2016-09-18] MEDS: CARVEDILOL 3.125 MG TABLET PO SCH ×2 (08:51→19:55)
[2016-09-18] MEDS: INSULIN DETEMIR 100 UNITS/ML, PEN SQ-INSULIN SCH ×2 (08:53→20:03)
[2016-09-18] MEDS ORDERED: FUROSEMIDE 20 MG TABLET PO SCH (09:00)
[2016-09-18] MEDS: HYDROcodone/APAP 10/325 MG TABLET PO PRN ×2 (09:08→18:22)
[2016-09-18] MEDS ORDERED: SODIUM CHLORIDE 0.9% 500 ML IV SCH ×2 (12:30→19:30)
[2016-09-18 14:44] VITALS: BP 108/75
[2016-09-18] MEDS: ENOXAPARIN 40 MG/0.4 ML SQ SCH (15:58)
[2016-09-18] MEDS ORDERED: ONDANSETRON 2MG/ML, 2ML IVPush PRN (19:30)
[2016-09-18] MEDS ORDERED: DOCUSATE 100 MG CAPSULE PO PRN (19:30)
[2016-09-18] MEDS ORDERED: morphine SULFATE 10 MG/ML, 1ML IVPush PRN (19:30)
[2016-09-18] MEDS ORDERED: ACETAMINOPHEN 325 MG TABLET PO PRN (19:30)
[2016-09-18] MEDS ORDERED: hydrALAzine 20 MG/ML, 1ML IVPush PRN (19:30)
[2016-09-18 19:45] VITALS: BP 123/89
[2016-09-18] MEDS: GUAIFENESIN/DM 200-20MG, 10ML UDC PO PRN (19:49)
[2016-09-18] MEDS: AMITRIPTYLINE 50 MG TABLET PO SCH (19:55)
[2016-09-19 02:05] VITALS: BP 118/89
[2016-09-19 05:09] LABS: BLOOD UREA NITROGEN 37 mg/dL (7-18)
[2016-09-19 05:11] LABS: ASPARTATE AMINO TRANSFERASE 126 U/L (15-37)
[2016-09-19] MEDS: ASPIRIN 81 MG TABLET EC PO SCH (05:50)
[2016-09-19] MEDS: INSULIN ASPART 100 UNITS/ML, PEN SQ-INSULIN SCH ×4 (07:00→21:00)
[2016-09-19] MEDS: ALBUTEROL/IPRATROPIUM 2.5MG/0.5MG, 3 ML NPPB SCH ×4 (07:15→20:00)
[2016-09-19] MEDS: INSULIN DETEMIR 100 UNITS/ML, PEN SQ-INSULIN SCH ×2 (08:13→21:48)
[2016-09-19] MEDS: BUSPIRONE 5 MG TABLET PO SCH ×3 (08:14→21:46)
[2016-09-19] MEDS: CLOPIDOGREL 75 MG TABLET PO SCH (08:14)
[2016-09-19] MEDS: LISINOPRIL 5 MG TABLET PO SCH (08:18)
[2016-09-19] MEDS: CARVEDILOL 3.125 MG TABLET PO SCH ×2 (08:18→21:46)
[2016-09-19] MEDS: PREGABALIN 200 MG CAPSULE PO SCH ×3 (08:18→21:46)
[2016-09-19] MEDS: ISOSORBIDE MONONITRATE ER 30 MG TABLET PO SCH (08:18)
[2016-09-19 08:23] VITALS: BP 146/87
[2016-09-19] MEDS: FLUTICASONE/VILANTEROL 200-25MCG/INH INH SCH (08:27)
[2016-09-19] MEDS: HYDROcodone/APAP 10/325 MG TABLET PO PRN ×2 (08:34→17:38)
[2016-09-19] MEDS: GUAIFENESIN/DM 200-20MG, 10ML UDC PO PRN ×2 (09:20→17:38)
[2016-09-19 14:15] VITALS: BP 118/84
[2016-09-19] MEDS: ENOXAPARIN 40 MG/0.4 ML SQ SCH (18:08)
[2016-09-19 19:29] VITALS: BP 136/84
[2016-09-19] MEDS: AMITRIPTYLINE 50 MG TABLET PO SCH (21:46)
[2016-09-20] MEDS: HYDROcodone/APAP 10/325 MG TABLET PO PRN ×2 (02:30→13:11)
[2016-09-20 02:31] VITALS: BP 119/82
[2016-09-20] MEDS: GUAIFENESIN/DM 200-20MG, 10ML UDC PO PRN (02:38)
[2016-09-20] MEDS: ASPIRIN 81 MG TABLET EC PO SCH (05:14)
[2016-09-20 06:00] LABS: BLOOD UREA NITROGEN 29 mg/dL (7-18)
[2016-09-20] MEDS: ALBUTEROL/IPRATROPIUM 2.5MG/0.5MG, 3 ML NPPB SCH ×2 (07:35→11:25)
[2016-09-20 08:10] VITALS: BP 128/86
[2016-09-20] MEDS: INSULIN ASPART 100 UNITS/ML, PEN SQ-INSULIN SCH ×2 (08:27→13:23)
[2016-09-20] MEDS ORDERED: FUROSEMIDE 20 MG TABLET PO SCH (09:00)
[2016-09-20] MEDS: PREGABALIN 200 MG CAPSULE PO SCH (09:36)
[2016-09-20] MEDS: CARVEDILOL 3.125 MG TABLET PO SCH (09:36)
[2016-09-20] MEDS: BUSPIRONE 5 MG TABLET PO SCH (09:36)
[2016-09-20] MEDS: CLOPIDOGREL 75 MG TABLET PO SCH (09:36)
[2016-09-20] MEDS: ISOSORBIDE MONONITRATE ER 30 MG TABLET PO SCH (09:36)
[2016-09-20] MEDS: FLUTICASONE/VILANTEROL 200-25MCG/INH INH SCH (09:36)
[2016-09-20] MEDS: LISINOPRIL 5 MG TABLET PO SCH (09:36)
[2016-09-20] MEDS: INSULIN DETEMIR 100 UNITS/ML, PEN SQ-INSULIN SCH (09:37)
[2016-09-20 13:30] VITALS: BP 104/64
== END 2016-09-20 16:10 | disposition home or self-care (01) | DRG 291 ==
LOC: ED 11:00 → EDIP 13:59 → 5SO 14:51
PROVIDERS: ADMIT Internal Medicine; ATTEND Internal Medicine
DX: I13.0 Hypertensive heart and chronic kidney disease with heart failure and stage 1 through stage 4 chronic kidney disease, or unspecified chronic kidney disease (principal); I50.43 Acute on chronic combined systolic (congestive) and diastolic (congestive) heart failure; N17.9 Acute kidney failure, unspecified; J96.11 Chronic respiratory failure with hypoxia; E87.1 Hypo-osmolality and hyponatremia; I24.8 Other forms of acute ischemic heart disease; I42.9 Cardiomyopathy, unspecified; J44.9 Chronic obstructive pulmonary disease, unspecified; N18.2 Chronic kidney disease, stage 2 (mild); E11.621 Type 2 diabetes mellitus with foot ulcer; E86.1 Hypovolemia; L98.499 Non-pressure chronic ulcer of skin of other sites with unspecified severity; B18.2 Chronic viral hepatitis C; E78.5 Hyperlipidemia, unspecified; E11.22 Type 2 diabetes mellitus with diabetic chronic kidney disease; E11.42 Type 2 diabetes mellitus with diabetic polyneuropathy; I25.10 Atherosclerotic heart disease of native coronary artery without angina pectoris; I27.2 Other secondary pulmonary hypertension; I95.1 Orthostatic hypotension; Z79.4 Long term (current) use of insulin; Z82.49 Family history of ischemic heart disease and other diseases of the circulatory system; Z83.3 Family history of diabetes mellitus; Z80.1 Family history of malignant neoplasm of trachea, bronchus and lung; Z91.11 Patient's noncompliance with dietary regimen; Z91.19 Patient's noncompliance with other medical treatment and regimen; Z89.9 Acquired absence of limb, unspecified; Z87.891 Personal history of nicotine dependence
CPT/HCPCS: 36415; 36600; 70450; 71010; 76700; 80048; 80053; 80076; 81003; 82140; 82570; 82803; 82962; 83735; 83880; 84100; 84300; 84443; 84484; 85025; 85610; 93005; 94640; 99285; J1650; J1815; J1940; J7620; J7040

== ENCOUNTER 2016-09-22 11:34 | Emergency (ER) | payer MEDICARE ==
[~2016-09-22] VITALS: Ht 177.8 cm; Wt 106.3 kg
[2016-09-22] MEDS ORDERED: SODIUM CHLORIDE FLUSH 10ML SYR IVF ONE (12:00)
[2016-09-22 12:30] LABS: BLOOD UREA NITROGEN 31 mg/dL (7-18)
[2016-09-22 12:37] LABS: ASPARTATE AMINO TRANSFERASE 112 U/L (15-37)
[2016-09-22 12:38] LABS: IS PT STATUS REG ER OR PRE ER? YES
[2016-09-22 13:40] VITALS: BP 110/69
== END 2016-09-22 13:18 | disposition home or self-care (01) ==
LOC: ED 13:12
DX: R03.1 Nonspecific low blood-pressure reading (principal); E87.1 Hypo-osmolality and hyponatremia; J44.9 Chronic obstructive pulmonary disease, unspecified; N18.2 Chronic kidney disease, stage 2 (mild); I50.9 Heart failure, unspecified; I25.10 Atherosclerotic heart disease of native coronary artery without angina pectoris; I25.2 Old myocardial infarction
CPT/HCPCS: 36415; 70551; 71010; 80053; 82962; 83880; 84484; 85025; 85610; 93005; 99285

== ENCOUNTER 2016-10-13 21:50 | Inpatient (IN) | payer MEDICARE ==
[~2016-10-13] VITALS: Ht 182.9 cm; Wt 103.9 kg
[~2016-10-13 21:50] MED LIST changes: +AZIT500T5 PO; -AZIT500T77 PO; +DOCU-131 PO; -DOCU-30 PO; -ENAL5TAB34 PO; +ENAL5TAB70 PO; +FERR325T18 PO; -FERR325T20 PO; +FERR325T5 PO; -LEVO500T33 PO; +LEVO500T47 PO; +NICO1PAT13 TD; +NICO1PAT16 TD; -NICO1PAT4 TD; -NICO1PAT5 TD
[2016-10-13] MEDS ORDERED: ALBUTEROL/IPRATROPIUM 2.5MG/0.5MG, 3 ML NPPB ONE (22:30)
[2016-10-13 22:48] LABS: HEMATOCRIT 49.6 % (39.2-51.8); HEMOGLOBIN 15.6 g/dL (13.7-18.0); WHITE BLOOD COUNT 12.5 x10^3/uL (3.4-10)
[2016-10-13] MEDS ORDERED: SODIUM CHLORIDE FLUSH 10ML SYR IVF ONE (23:00)
[2016-10-13] MEDS ORDERED: AMIT50TA PO (23:01)
[2016-10-13] MEDS ORDERED: FURO20TA3 PO (23:01)
[2016-10-13 23:04] LABS: ASPARTATE AMINO TRANSFERASE 70 U/L (15-37); BLOOD UREA NITROGEN 43 mg/dL (7-18)
[2016-10-13 23:09] LABS: IS PT STATUS REG ER OR PRE ER? YES
[2016-10-14 01:39] LABS: ABG COLLECTION SITE RIGHT RADIAL; COLLATERAL CIRCULATION TESTING NORMAL
[2016-10-14] MEDS ORDERED: POLYETHYLENE GLYCOL 17 GM PACKET PO PRN (08:00)
[2016-10-14] MEDS ORDERED: ONDANSETRON ODT 4 MG PO PRN (08:00)
[2016-10-14] MEDS ORDERED: BISACODYL 10 MG SUPP PR PRN (08:00)
[2016-10-14] MEDS ORDERED: ONDANSETRON 2MG/ML, 2ML IVPush PRN (08:00)
[2016-10-14] MEDS ORDERED: ENALAPRILAT 1.25 MG/ML, 2ML IVPush PRN (08:00)
[2016-10-14] MEDS ORDERED: ACETAMINOPHEN 325 MG TABLET PO PRN (08:00)
[2016-10-14] MEDS ORDERED: HYDROcodone/APAP 5/325 TABLET PO PRN (08:00)
[2016-10-14 08:26] VITALS: BP 117/79
[2016-10-14 08:38] LABS: TOTAL IRON BINDING CAPACITY 413 mcg/dL (250-450)
[2016-10-14 08:43] LABS: IS PT STATUS REG ER OR PRE ER? NO
[2016-10-14] MEDS ORDERED: DOCUSATE 100 MG CAPSULE PO PRN (09:00)
[2016-10-14] MEDS: FERROUS SULFATE 160 MG HOMEMEDPO SCH (09:00)
[2016-10-14 10:38] VITALS: BP 103/74
[2016-10-14] MEDS: FUROSEMIDE 20 MG TABLET PO SCH ×2 (10:46→20:48)
[2016-10-14] MEDS: CLOPIDOGREL 75 MG TABLET PO SCH (10:46)
[2016-10-14] MEDS: CARVEDILOL 3.125 MG TABLET PO SCH ×2 (10:46→20:48)
[2016-10-14] MEDS: ISOSORBIDE MONONITRATE ER 30 MG TABLET PO SCH (10:46)
[2016-10-14] MEDS: BUSPIRONE 5 MG TABLET PO SCH ×3 (10:47→20:49)
[2016-10-14] MEDS: PREGABALIN 200 MG CAPSULE PO SCH ×3 (10:47→20:48)
[2016-10-14] MEDS: FLUTICASONE/VILANTEROL 200-25MCG/INH INH SCH (10:49)
[2016-10-14] MEDS: HYDROcodone/APAP 10/325 MG TABLET PO SCH ×3 (10:55→22:30)
[2016-10-14 12:03] VITALS: BP 97/71
[2016-10-14] MEDS: INSULIN DETEMIR 100 UNITS/ML, PEN SQ-INSULIN SCH ×2 (12:44→20:50)
[2016-10-14 13:35] LABS: IS PT STATUS REG ER OR PRE ER? NO
[2016-10-14] MEDS ORDERED: PINK LADY ENEMA 1,000 ML PR ONE (14:30)
[2016-10-14] MEDS: INSULIN ASPART 100 UNITS/ML, PEN SQ-INSULIN SCH ×2 (16:00→22:30)
[2016-10-14 19:14] VITALS: BP 93/66
[2016-10-14] MEDS ORDERED: ALBUTEROL SULFATE 2.5 MG/3 ML ONE (19:23)
[2016-10-14] MEDS: ALBUTEROL SULFATE 2.5MG/0.5ML NEB SCH (19:34)
[2016-10-14] MEDS ORDERED: AMITRIPTYLINE 50 MG TABLET PO SCH (21:00)
[2016-10-15 01:55] VITALS: BP 119/71
[2016-10-15 05:41] LABS: BLOOD UREA NITROGEN 58 mg/dL (7-18)
[2016-10-15] MEDS: ALBUTEROL SULFATE 2.5MG/0.5ML NEB SCH ×3 (06:00→14:44)
[2016-10-15 06:40] LABS: HEMATOCRIT 49.1 % (39.2-51.8); HEMOGLOBIN 15.4 g/dL (13.7-18.0); WHITE BLOOD COUNT 7.7 x10^3/uL (3.4-10)
[2016-10-15] MEDS ORDERED: ALBUTEROL SULFATE 2.5 MG/3 ML ONE ×3 (06:41→14:12)
[2016-10-15] MEDS: INSULIN ASPART 100 UNITS/ML, PEN SQ-INSULIN SCH ×2 (07:00→11:00)
[2016-10-15 08:19] VITALS: BP 125/84
[2016-10-15] MEDS: FLUTICASONE/VILANTEROL 200-25MCG/INH INH SCH (08:25)
[2016-10-15] MEDS: CARVEDILOL 3.125 MG TABLET PO SCH (08:26)
[2016-10-15] MEDS: CLOPIDOGREL 75 MG TABLET PO SCH (08:26)
[2016-10-15] MEDS: HYDROcodone/APAP 10/325 MG TABLET PO SCH (08:26)
[2016-10-15] MEDS: FUROSEMIDE 20 MG TABLET PO SCH (08:26)
[2016-10-15] MEDS: ISOSORBIDE MONONITRATE ER 30 MG TABLET PO SCH (08:26)
[2016-10-15] MEDS: PREGABALIN 200 MG CAPSULE PO SCH (08:26)
[2016-10-15] MEDS: BUSPIRONE 5 MG TABLET PO SCH (08:27)
[2016-10-15] MEDS: FERROUS SULFATE 160 MG HOMEMEDPO SCH (08:27)
[2016-10-15] MEDS: INSULIN DETEMIR 100 UNITS/ML, PEN SQ-INSULIN SCH (08:28)
[2016-10-15 14:07] VITALS: BP 90/51
[2016-10-15] MEDS ORDERED: DOCU-131 PO (14:51)
== END 2016-10-15 17:58 | disposition home or self-care (01) | DRG 917 ==
LOC: ED 21:57 → SUATTDRO 10-14 01:01 → EDIP 10-14 01:18 → 5SO 10-14 02:40 → 4WST 10-14 11:35
PROVIDERS: ADMIT Hospitalist; ATTEND Hospitalist
DX: T40.2X1A Poisoning by other opioids, accidental (unintentional), initial encounter (principal); G92 Toxic encephalopathy; J96.11 Chronic respiratory failure with hypoxia; I42.9 Cardiomyopathy, unspecified; I50.22 Chronic systolic (congestive) heart failure; R53.1 Weakness; E11.22 Type 2 diabetes mellitus with diabetic chronic kidney disease; I27.2 Other secondary pulmonary hypertension; E87.5 Hyperkalemia; N28.9 Disorder of kidney and ureter, unspecified; B18.2 Chronic viral hepatitis C; D72.829 Elevated white blood cell count, unspecified; E78.5 Hyperlipidemia, unspecified; I25.10 Atherosclerotic heart disease of native coronary artery without angina pectoris; J44.9 Chronic obstructive pulmonary disease, unspecified; K59.00 Constipation, unspecified; N18.2 Chronic kidney disease, stage 2 (mild); R29.6 Repeated falls; Z79.4 Long term (current) use of insulin; Z82.49 Family history of ischemic heart disease and other diseases of the circulatory system; I25.2 Old myocardial infarction; Z83.3 Family history of diabetes mellitus; Z87.891 Personal history of nicotine dependence; Z91.14 Patient's other noncompliance with medication regimen; Z89.421 Acquired absence of other right toe(s); Z79.899 Other long term (current) drug therapy; B19.20 Unspecified viral hepatitis C without hepatic coma; R06.89 Other abnormalities of breathing
CPT/HCPCS: 36415; 36600; 70450; 71010; 80048; 80053; 81001; 82140; 82607; 82746; 82803; 82962; 83540; 83550; 83735; 84100; 84132; 84443; 84484; 85025; 85610; 87086; 93005; 93922; 94640; 99285; J1815; J7611; J7620

== ENCOUNTER 2016-10-18 09:39 | Inpatient (IN) | payer MEDICARE ==
[~2016-10-18] VITALS: Ht 182.9 cm; Wt 106.9 kg
[2016-10-18] MEDS ORDERED: SODIUM CHLORIDE 0.9% 1,000 ML IV ONE ×2 (10:15→12:21)
[2016-10-18] MEDS ORDERED: SODIUM CHLORIDE FLUSH 10ML SYR IVF ONE (10:30)
[2016-10-18] MEDS ORDERED: SODIUM CHLORIDE 0.9% 1,000ML IVBOLUS ONE (10:30)
[2016-10-18 10:55] LABS: HEMATOCRIT 47.5 % (39.2-51.8); WHITE BLOOD COUNT 8.1 x10^3/uL (3.4-10)
[2016-10-18 11:08] LABS: ASPARTATE AMINO TRANSFERASE 77 U/L (15-37); BLOOD UREA NITROGEN 66 mg/dL (7-18)
[2016-10-18] MEDS ORDERED: SODIUM CHLORIDE FLUSH 10ML SYR IVF PRN (12:30)
[2016-10-18] MEDS ORDERED: CALCIUM CHLORIDE 10%, 10ML SYR IVPush ONE (13:00)
[2016-10-18] MEDS ORDERED: DEXTROSE 50%, 50ML SYRINGE IVPush ONE (13:00)
[2016-10-18] MEDS ORDERED: INSULIN REGULAR 100 UNITS/ML, 3ML VIAL IVPush ONE (13:00)
[2016-10-18 13:40] LABS: BLOOD UREA NITROGEN 62 mg/dL (7-18)
[2016-10-18] MEDS ORDERED: ACETAMINOPHEN 325 MG TABLET PO PRN (14:30)
[2016-10-18] MEDS ORDERED: DEXTROSE 4 GM TAB.CHEW PO PRN (14:30)
[2016-10-18] MEDS ORDERED: BISACODYL 10 MG SUPP PR PRN (14:30)
[2016-10-18] MEDS ORDERED: ONDANSETRON 2MG/ML, 2ML IVPush PRN (14:30)
[2016-10-18] MEDS ORDERED: POLYETHYLENE GLYCOL 17 GM PACKET PO PRN (14:30)
[2016-10-18] MEDS ORDERED: NITROGLYCERIN 0.4 MG/SPRAY SL PRN (14:30)
[2016-10-18] MEDS ORDERED: morphine SULFATE 10 MG/ML, 1ML IVPush PRN (14:30)
[2016-10-18] MEDS ORDERED: LABETALOL 5MG/ML, 20ML IVPush PRN (14:30)
[2016-10-18] MEDS ORDERED: GLUCAGON 1 MG IM PRN (14:30)
[2016-10-18] MEDS ORDERED: DEXTROSE 50%, 50ML SYRINGE IVPush PRN (14:30)
[2016-10-18] MEDS ORDERED: ONDANSETRON ODT 4 MG PO PRN (14:30)
[2016-10-18] MEDS ORDERED: DOCUSATE 100 MG CAPSULE PO PRN (14:30)
[2016-10-18] MEDS ORDERED: DEXTROSE 50%, 50ML VIAL ONE (14:39)
[2016-10-18] MEDS ORDERED: CALCIUM CHLORIDE 10%, 10ML SYR ONE (14:39)
[2016-10-18] MEDS ORDERED: HEPARIN 5,000 UNITS/ML, 1ML ONE (14:39)
[2016-10-18] MEDS ORDERED: INSULIN REGULAR 100 UNITS/ML, 3ML VIAL ONE (14:40)
[2016-10-18] MEDS: HEPARIN 5,000 UNITS/ML, 1ML SQ SCH ×2 (14:47→21:46)
[2016-10-18] MEDS: INSULIN ASPART 100 UNITS/ML, PEN SQ-INSULIN SCH ×2 (15:40→20:21)
[2016-10-18 15:41] VITALS: BP 101/70
[2016-10-18] MEDS: PREGABALIN 200 MG CAPSULE PO SCH ×2 (16:00→20:20)
[2016-10-18] MEDS: FERROUS SULFATE 325 MG TABLET PO SCH (16:26)
[2016-10-18] MEDS: BUSPIRONE 5 MG TABLET PO SCH ×2 (16:26→20:21)
[2016-10-18 16:42] LABS: BLOOD UREA NITROGEN 57 mg/dL (7-18)
[2016-10-18] MEDS ORDERED: ALBUTEROL/IPRATROPIUM 2.5MG/0.5MG, 3 ML NEB PRN (17:00)
[2016-10-18] MEDS ORDERED: SODIUM CHLORIDE 0.9% 1,000 ML IV SCH (17:30)
[2016-10-18] MEDS: SODIUM CHLORIDE FLUSH 10ML SYR IVF SCH (20:21)
[2016-10-18 20:43] VITALS: BP 109/74
[2016-10-18] MEDS: INSULIN DETEMIR 100 UNITS/ML, PEN SQ-INSULIN SCH (21:46)
[2016-10-19] MEDS: HEPARIN 5,000 UNITS/ML, 1ML SQ SCH ×2 (05:36→21:09)
[2016-10-19] MEDS: ALBUTEROL/IPRATROPIUM 2.5MG/0.5MG, 3 ML NEB SCH ×4 (07:00→19:42)
[2016-10-19] MEDS: OXYcodone/APAP 5/325MG TABLET PO PRN ×4 (08:00→21:21)
[2016-10-19] MEDS: INSULIN ASPART 100 UNITS/ML, PEN SQ-INSULIN SCH ×4 (08:00→21:00)
[2016-10-19 08:15] VITALS: BP 108/73
[2016-10-19 08:18] LABS: ASPARTATE AMINO TRANSFERASE 65 U/L (15-37); BLOOD UREA NITROGEN 48 mg/dL (7-18)
[2016-10-19 08:23] LABS: HEMATOCRIT 46.8 % (39.2-51.8); HEMOGLOBIN 14.8 g/dL (13.7-18.0); WHITE BLOOD COUNT 7.6 x10^3/uL (3.4-10)
[2016-10-19] MEDS: SODIUM CHLORIDE FLUSH 10ML SYR IVF SCH ×2 (08:30→21:10)
[2016-10-19] MEDS: INSULIN DETEMIR 100 UNITS/ML, PEN SQ-INSULIN SCH ×2 (08:30→21:10)
[2016-10-19] MEDS: PREGABALIN 200 MG CAPSULE PO SCH ×3 (08:30→21:09)
[2016-10-19] MEDS: BUSPIRONE 5 MG TABLET PO SCH ×3 (08:30→21:09)
[2016-10-19] MEDS: FERROUS SULFATE 325 MG TABLET PO SCH (08:36)
[2016-10-19] MEDS: FLUTICASONE/VILANTEROL 200-25MCG/INH INH SCH (11:55)
[2016-10-19] MEDS: CLOPIDOGREL 75 MG TABLET PO SCH (11:58)
[2016-10-19 14:00] VITALS: BP 109/85
[2016-10-19] MEDS: SODIUM CHLORIDE 0.9% 1,000 ML IV SCH (16:51)
[2016-10-19 18:45] VITALS: BP 113/86
[2016-10-20 02:18] VITALS: BP 128/91
[2016-10-20 04:58] LABS: BLOOD UREA NITROGEN 43 mg/dL (7-18)
[2016-10-20] MEDS: INSULIN ASPART 100 UNITS/ML, PEN SQ-INSULIN SCH ×4 (07:00→21:00)
[2016-10-20] MEDS: ALBUTEROL/IPRATROPIUM 2.5MG/0.5MG, 3 ML NEB SCH ×4 (07:35→19:17)
[2016-10-20 07:50] VITALS: BP 123/93
[2016-10-20] MEDS: INSULIN DETEMIR 100 UNITS/ML, PEN SQ-INSULIN SCH ×2 (09:00→21:54)
[2016-10-20] MEDS: FLUTICASONE/VILANTEROL 200-25MCG/INH INH SCH (09:26)
[2016-10-20] MEDS: SODIUM CHLORIDE FLUSH 10ML SYR IVF SCH ×2 (09:27→21:53)
[2016-10-20] MEDS: PREGABALIN 200 MG CAPSULE PO SCH ×3 (09:27→21:53)
[2016-10-20] MEDS: FERROUS SULFATE 325 MG TABLET PO SCH (09:27)
[2016-10-20] MEDS: HEPARIN 5,000 UNITS/ML, 1ML SQ SCH (09:27)
[2016-10-20] MEDS: CLOPIDOGREL 75 MG TABLET PO SCH (09:27)
[2016-10-20] MEDS: OXYcodone/APAP 5/325MG TABLET PO PRN ×3 (09:27→22:33)
[2016-10-20] MEDS: BUSPIRONE 5 MG TABLET PO SCH ×3 (09:27→21:54)
[2016-10-20] MEDS ORDERED: SODIUM POLYSTYRENE SULFONATE ORAL SUSP PO ONE (10:00)
[2016-10-20 12:22] LABS: BLOOD UREA NITROGEN 38 mg/dL (7-18)
[2016-10-20 12:27] LABS: ASPARTATE AMINO TRANSFERASE 81 U/L (15-37)
[2016-10-20 13:09] VITALS: BP 126/91
[2016-10-20] MEDS: SODIUM CHLORIDE 0.9% 1,000 ML IV SCH (15:42)
[2016-10-20 19:33] VITALS: BP 117/72
[2016-10-21 01:22] VITALS: BP 138/96
[2016-10-21 05:51] LABS: BLOOD UREA NITROGEN 33 mg/dL (7-18)
[2016-10-21 05:54] LABS: ASPARTATE AMINO TRANSFERASE 67 U/L (15-37)
[2016-10-21] MEDS: ALBUTEROL/IPRATROPIUM 2.5MG/0.5MG, 3 ML NEB SCH ×4 (06:00→19:14)
[2016-10-21] MEDS: INSULIN ASPART 100 UNITS/ML, PEN SQ-INSULIN SCH ×4 (07:00→21:15)
[2016-10-21] MEDS: FERROUS SULFATE 325 MG TABLET PO SCH (08:36)
[2016-10-21] MEDS: BUSPIRONE 5 MG TABLET PO SCH ×3 (08:36→21:13)
[2016-10-21] MEDS: CLOPIDOGREL 75 MG TABLET PO SCH (08:36)
[2016-10-21] MEDS: PREGABALIN 200 MG CAPSULE PO SCH ×3 (08:36→21:13)
[2016-10-21] MEDS: INSULIN DETEMIR 100 UNITS/ML, PEN SQ-INSULIN SCH ×2 (08:38→21:14)
[2016-10-21] MEDS: SODIUM CHLORIDE FLUSH 10ML SYR IVF SCH ×2 (08:38→21:13)
[2016-10-21] MEDS: FLUTICASONE/VILANTEROL 200-25MCG/INH INH SCH (09:00)
[2016-10-21] MEDS: OXYcodone/APAP 5/325MG TABLET PO PRN ×3 (10:07→21:13)
[2016-10-21] MEDS: SODIUM CHLORIDE 0.9% 1,000 ML IV SCH (15:00)
[2016-10-21 17:04] VITALS: BP 112/78
[2016-10-21] MEDS ORDERED: SODIUM POLYSTYRENE SULFONATE ORAL SUSP PR ONE (18:30)
[2016-10-21 20:11] LABS: BLOOD UREA NITROGEN 28 mg/dL (7-18)
[2016-10-21 21:09] VITALS: BP 118/81
[2016-10-22 02:00] VITALS: BP 141/80
[2016-10-22] MEDS: INSULIN ASPART 100 UNITS/ML, PEN SQ-INSULIN SCH (07:00)
[2016-10-22 07:15] VITALS: BP 134/81
[2016-10-22] MEDS: ALBUTEROL/IPRATROPIUM 2.5MG/0.5MG, 3 ML NEB SCH (07:35)
[2016-10-22] MEDS: BUSPIRONE 5 MG TABLET PO SCH (09:19)
[2016-10-22] MEDS: FERROUS SULFATE 325 MG TABLET PO SCH (09:19)
[2016-10-22] MEDS: PREGABALIN 200 MG CAPSULE PO SCH (09:19)
[2016-10-22] MEDS: CLOPIDOGREL 75 MG TABLET PO SCH (09:19)
[2016-10-22] MEDS: FLUTICASONE/VILANTEROL 200-25MCG/INH INH SCH (09:19)
[2016-10-22] MEDS: SODIUM CHLORIDE FLUSH 10ML SYR IVF SCH (09:19)
[2016-10-22] MEDS: INSULIN DETEMIR 100 UNITS/ML, PEN SQ-INSULIN SCH (09:35)
== END 2016-10-22 10:56 | disposition home or self-care (01) | DRG 292 ==
LOC: ED 10:03 → EDIP 12:21 → 4WST 15:50
PROVIDERS: ADMIT Hospitalist; ATTEND Hospitalist
DX: I13.0 Hypertensive heart and chronic kidney disease with heart failure and stage 1 through stage 4 chronic kidney disease, or unspecified chronic kidney disease (principal); N17.9 Acute kidney failure, unspecified; J96.10 Chronic respiratory failure, unspecified whether with hypoxia or hypercapnia; I95.9 Hypotension, unspecified; E87.2 Acidosis; E11.22 Type 2 diabetes mellitus with diabetic chronic kidney disease; E11.622 Type 2 diabetes mellitus with other skin ulcer; I27.2 Other secondary pulmonary hypertension; N18.3 Chronic kidney disease, stage 3 (moderate); I50.42 Chronic combined systolic (congestive) and diastolic (congestive) heart failure; E87.1 Hypo-osmolality and hyponatremia; B18.2 Chronic viral hepatitis C; E78.5 Hyperlipidemia, unspecified; E86.1 Hypovolemia; E87.5 Hyperkalemia; I25.10 Atherosclerotic heart disease of native coronary artery without angina pectoris; I25.5 Ischemic cardiomyopathy; J44.9 Chronic obstructive pulmonary disease, unspecified; L98.499 Non-pressure chronic ulcer of skin of other sites with unspecified severity; F17.200 Nicotine dependence, unspecified, uncomplicated; Z79.4 Long term (current) use of insulin; Z82.5 Family history of asthma and other chronic lower respiratory diseases; Z91.14 Patient's other noncompliance with medication regimen; Z89.431 Acquired absence of right foot
CPT/HCPCS: 36415; 71010; 76770; 80048; 80053; 82040; 82436; 82570; 82962; 83605; 83735; 83880; 84100; 84133; 84300; 85025; 85610; 85730; 93005; 94640; 96374; J1644; J1815; J7620; J7030

== ENCOUNTER 2016-11-21 21:28 | Emergency (ER) | payer SELFPAY ==
[~2016-11-21] VITALS: Ht 180.3 cm; Wt 110.0 kg
[~2016-11-21 21:28] MED LIST changes: +NICO-486 TD; +NICO-487 TD; -NICO1PAT13 TD; -NICO1PAT16 TD
[2016-11-21] MEDS ORDERED: ALBUTEROL/IPRATROPIUM 2.5MG/0.5MG, 3 ML ONE (21:50)
[2016-11-21] MEDS ORDERED: SODIUM CHLORIDE FLUSH 10ML SYR IVF ONE (22:00)
[2016-11-21] MEDS ORDERED: ALBUTEROL/IPRATROPIUM 2.5MG/0.5MG, 3 ML NPPB ONE (22:00)
[2016-11-21] MEDS ORDERED: PLEASE ENTER HEIGHT AND WEIGHT MC SCH (22:00)
[2016-11-21 22:27] LABS: HEMOGLOBIN 16.1 g/dL (13.7-18.0)
[2016-11-21 22:40] LABS: BLOOD UREA NITROGEN 38 mg/dL (7-18)
[2016-11-21 22:44] LABS: ASPARTATE AMINO TRANSFERASE 52 U/L (15-37)
[2016-11-21 22:46] LABS: IS PT STATUS REG ER OR PRE ER? YES
[2016-11-21 22:51] LABS: ABG COLLECTION SITE RIGHT RADIAL; COLLATERAL CIRCULATION TESTING NORMAL
[2016-11-21 22:58] VITALS: BP 142/61
== END 2016-11-22 02:16 | disposition home or self-care (01) ==
LOC: ED 23:59
DX: J44.9 Chronic obstructive pulmonary disease, unspecified (principal); Z00.00 Encounter for general adult medical examination without abnormal findings; K59.00 Constipation, unspecified; I50.9 Heart failure, unspecified; I25.10 Atherosclerotic heart disease of native coronary artery without angina pectoris; E11.22 Type 2 diabetes mellitus with diabetic chronic kidney disease; N18.2 Chronic kidney disease, stage 2 (mild); B18.2 Chronic viral hepatitis C; Z91.14 Patient's other noncompliance with medication regimen
CPT/HCPCS: 36415; 36600; 71010; 80053; 82803; 83605; 83880; 84484; 85025; 87040; 93005; 94640; 99285; J7620